=== PATIENT | female | born 1935 | race Caucasian/White ===

== ENCOUNTER 2018-09-25 09:14 | Emergency (ER) | payer MEDICARE, BC ==
[2018-09-25] MEDS ORDERED: MAG HYDROX/AL HYDROX/SIMETH 30 ML, HYOSCYAMINE ELIXIR 10 ML, CIMETIDINE HCL 300 MG, LID... PO STA ×4 (09:47)
--- NOTE | 2018-09-25 10:38 | XR ---
EXAMINATION TYPE: XR chest 1V portable DATE OF EXAM: 09/25/2018 COMPARISON: NONE HISTORY: Pain, difficulty swallowing TECHNIQUE: Single frontal view of the chest is obtained. FINDINGS: There is no focal air space opacity, pleural effusion, or pneumothorax seen. The cardiac silhouette size is within normal limits. The aorta is dense. Patient is rotated. The osseous structu res are intact. IMPRESSION: No acute process.
--- NOTE | 2018-09-25 10:52 | ED ---
General Adult HPI - General Chief complaint: Skin/Abscess/Foreign Body Stated complaint: FB IN THROAT Time Seen by Provider: 09/25/18 09:32 Source: patient, RN notes reviewed, old records reviewed Mode of arrival: ambulatory Limitations: no limitations - History of Present Illness Initial comments: This is a 83-year-old female the ER for evaluation. This patient presents today for evaluation regards to pain in her abdomen. Pain in her chest. Patient feels like she swallowed and was unable is completely soft food only this morning. Symptoms have persisted. She is unable to handle secretions currently keep spitting and coughing. Unable to swallow or drink fluids after having his event. Patient states she was similar event maybe about 20 years ago. No history of endoscopy - Related Data Home Medications Medication Instructions Recorded Confirmed Artificial Tears-Hypromellose 1 drop BOTH EYES QID 09/25/18 09/25/18 [Artificial Tear Drops] Calcium/Magnesium/Zinc 1 tab PO DAILY 09/25/18 09/25/18 [Iglcqud-Autydthgm-Ozuy Tablet] Cholecalciferol [Vitamin D3] 1,000 unit PO DAILY 09/25/18 09/25/18 Diclofenac Sodium/Misoprostol 1 tab PO DAILY 09/25/18 09/25/18 [Arthrotec 75 mg-200 Mcg Tab] Multivitamins, Thera [Multivitamin 1 tab PO DAILY 09/25/18 09/25/18 (formulary)] Simvastatin [Zocor] 40 mg PO HS 09/25/18 09/25/18 Allergies Allergy/AdvReac Type Severity Reaction Status Date / Time Penicillins Allergy Unknown Verified 09/25/18 10:25 Review of Systems ROS Statement: Those systems with pertinent positive or pertinent negative responses have been documented in the HPI. ROS Other: All systems not noted in ROS Statement are negative. Past Medical History Past Medical History: COPD History of Any Multi-Drug Resistant Organisms: None Reported Past Psychological History: No Psychological Hx Reported Smoking Status: Current every day smoker Past Alcohol Use History: None Reported Past Drug Use History: None Reported General Exam Limitations: no limitations Course Vital Signs 09/25/18 09/25/18 09:28 12:41 Temperature 98.2 F Pulse Rate 57 L 64 Respiratory 20 18 Rate Blood Pressure 172/75 179/83 O2 Sat by Pulse 98 99 Oximetry - Reevaluation(s) Reevaluation #1: 09/25/18 14:02 Spoke with GI, they're made aware patient's main emergency room, patient was given glucagon IV and symptoms completely resolved. Patient tolerating oral intake EKG Findings - EKG Comments: EKG Findings:: EKG shows sinus rhythm rate of 63, ND 160, QRS 86, QTc 418 Medical Decision Making - Medical Decision Making 83 female the ER for evaluation, patient feels foreign body in throat. Patient' s resolution after glucagon. Tolerate oral intake. Patient can be discharged home - Lab Data Result diagrams: 09/25/18 13:26 09/25/18 13:26 Lab Results 09/25/18 09/25/18 09/25/18 Range/Units 13:26 13:26 13:26 WBC 6.6 (3.8-10.6) k/uL RBC 4.41 (3.80-5.40) m/uL Hgb 13.8 (11.4-16.0) gm/dL Hct 43.3 (34.0-46.0) % MCV 98.3 (80.0-100.0) fL MCH 31.3 (25.0-35.0) pg MCHC 31.8 (31.0-37.0) g/dL RDW 13.7 (11.5-15.5) % Plt Count 275 (150-450) k/uL Neutrophils % 63 % Lymphocytes % 29 % Monocytes % 6 % Eosinophils % 1 % Basophils % 0 % Neutrophils # 4.2 (1.3-7.7) k/uL Lymphocytes # 1.9 (1.0-4.8) k/uL Monocytes # 0.4 (0-1.0) k/uL Eosinophils # 0.1 (0-0.7) k/uL Basophils # 0.0 (0-0.2) k/uL PT 10.0 (9.0-12.0) sec INR 1.0 (<1.2) APTT 26.0 (22.0-30.0) sec Sodium 141 (137-145) mmol/L Potassium 4.3 (3.5-5.1) mmol/L Chloride 106 (98-107) mmol/L Carbon Dioxide 27 (22-30) mmol/L Anion Gap 8 mmol/L BUN 20 H (7-17) mg/dL Creatinine 0.73 (0.52-1.04) mg/dL Est GFR (CKD-EPI)AfAm 88 (>60 ml/min/1.73 sqM) Est GFR (CKD-EPI)NonAf 77 (>60 ml/min/1.73 sqM) Glucose 107 H (74-99) mg/dL Calcium 9.7 (8.4-10.2) mg/dL Magnesium 2.1 (1.6-2.3) mg/dL Total Bilirubin 0.6 (0.2-1.3) mg/dL AST 29 (14-36) U/L ALT 27 (9-52) U/L Alkaline Phosphatase 75 (38-126) U/L Total Protein 6.5 (6.3-8.2) g/dL Albumin 3.8 (3.5-5.0) g/dL Disposition Clinical Impression: Abdominal pain, Esophageal foreign body Disposition: HOME SELF-CARE Condition: Good Instructions: Esophageal Foreign Body (ED) Is patient prescribed a controlled substance at d/c from ED?: No Referrals: Milind Hines MD [STAFF PHYSICIAN] - 1-2 days
[2018-09-25] MEDS ORDERED: SODIUM CHLORIDE 0.9% 1,000 ML IV STA (12:42)
[2018-09-25] MEDS ORDERED: GLUCAGON 1 MG/ML VIAL IVP STA (12:42)
[2018-09-25 12:43] VITALS: RESP 18
[2018-09-25 13:51] LABS: Basophils % (A) 0 %; Eosinophils # (A) 0.1 k/uL (0-0.7); Eosinophils % (A) 1 %; HCT 43.3 % (34.0-46.0); HGB 13.8 gm/dL (11.4-16.0); Lymphocytes # (A) 1.9 k/uL (1.0-4.8); Lymphocytes % (A) 29 %; MCH 31.3 pg (25.0-35.0); MCHC 31.8 g/dL (31.0-37.0); MCV 98.3 fL (80.0-100.0); Mean Platelet Volume 7.6; Monocytes # (A) 0.4 k/uL (0-1.0); Monocytes % (A) 6 %; Neutrophils # (A) 4.2 k/uL (1.3-7.7); Neutrophils % (A) 63 %; Platelet Count 275 k/uL (150-450); RBC 4.41 m/uL (3.80-5.40); RDW 13.7 % (11.5-15.5); WBC 6.6 k/uL (3.8-10.6)
[2018-09-25 13:58] LABS: Albumin 3.8 g/dL (3.5-5.0); Calcium 9.7 mg/dL (8.4-10.2); Magnesium 2.1 mg/dL (1.6-2.3); Potassium 4.3 mmol/L (3.5-5.1); Total Bilirubin 0.6 mg/dL (0.2-1.3); Total Protein 6.5 g/dL (6.3-8.2)
[2018-09-25 14:03] LABS: Creatine Kinase 33 U/L (30-135)
[2018-09-25 14:16] LABS: Creatine Kinase MB 0.9 ng/mL (0.0-2.4); Troponin I <0.012 ng/mL (0.000-0.034)
[2018-09-25 14:40] VITALS: BP 121/77; PULSE 71; TEMP 98.6
--- NOTE | 2018-09-26 01:57 | CDI ---
Documentation Clarification OP Dear Dr. Chuck Amin Please do addendum to ED report for missing Physical examination. Thank you, Rachelle Merida Dump Attendant If you have any questions, please contact Talent Acquisition Relationship Manager at [phone] [facility]
== END 2018-09-25 14:40 | disposition home or self-care (01) ==
LOC: EC 09:14
DX: T18.128A Food in esophagus causing other injury, initial encounter (principal); R10.9 Unspecified abdominal pain; F17.200 Nicotine dependence, unspecified, uncomplicated; Z79.1 Long term (current) use of non-steroidal anti-inflammatories (NSAID); Z79.899 Other long term (current) drug therapy; Z88.0 Allergy status to penicillin
CPT/HCPCS: 99284; 96374; 96361; 36415; 93005; 80053; 82550; 82553; 83735; 84484; 85025; 85610; 85730; 71045; J1610

== ENCOUNTER 2023-08-13 12:35 | Inpatient (IN) | payer MEDICARE, BC ==
--- NOTE | 2023-08-13 13:34 | ED ---
Dizziness HPI - General Source: patient, RN notes reviewed Mode of arrival: ambulatory Limitations: no limitations <Cortes Fowler - Last Filed: 08/13/23 13:33> <Johnathon Hernández - Last Filed: 08/13/23 18:14> - General Chief Complaint: Dizziness Stated Complaint: Dizziness Time Seen by Provider: 08/13/23 13:33 - History of Present Illness Initial Comments: 88-year-old female presents emergency Department chief complaint of dizziness. Patient states symptoms have been present since last week. She states she feels like things inside her head or moving around. Patient states she's. Sitting in a hard time herself up. Symptoms have been present for several days. No chest pain or shortness breath. (Cortes Fowler) 88-year-old female presented to the ED with a chief complaint of dizziness. Patient states that she is normally very independent however notes over the past week has had symptoms of lightheadedness describing it as feeling like she is going to pass out and also notes that she is sometimes experiencing dizziness describing as feeling unsteady on her feet and needing to grab onto the amor so that she does not fall down. States that due to her symptoms, is unable to do her activities of daily living and notes that she has been lying/sitting more than usual. Denies chest pain or shortness of breath during these episodes. Denies abdominal pain, nausea, vomiting or any other symptoms. Denies urinary symptoms. No other complaints. (Johnathon Hernández) - Related Data Home Medications Medication Instructions Recorded Confirmed Diclofenac Sodium/Misoprostol 1 tab PO DAILY 09/25/18 09/25/18 [Arthrotec 75 mg-200 Mcg Tab] Simvastatin [Zocor] 40 mg PO HS 09/25/18 09/25/18 Levothyroxine Sodium [Synthroid] 25 mcg PO DAILY 08/13/23 08/13/23 atenoloL [Tenormin] 25 mg PO DAILY 08/13/23 08/13/23 traZODone HCL [Desyrel] 25 - 50 mg PO HS PRN 08/13/23 08/13/23 Allergies Allergy/AdvReac Type Severity Reaction Status Date / Time Penicillins Allergy Unknown Verified 08/13/23 12:41 Review of Systems ROS Other: All systems not noted in ROS Statement are negative. <Cortes Fowler - Last Filed: 08/13/23 13:33> ROS Other: All systems not noted in ROS Statement are negative. <Johnathon Hernández - Last Filed: 08/13/23 18:14> ROS Statement: Those systems with pertinent positive or pertinent negative responses have been documented in the HPI. Past Medical History Past Medical History: COPD History of Any Multi-Drug Resistant Organisms: None Reported Past Surgical History: No Surgical Hx Reported Past Psychological History: No Psychological Hx Reported Smoking Status: Former smoker Past Alcohol Use History: None Reported Past Drug Use History: None Reported <Cortes Fowler - Last Filed: 08/13/23 13:33> General Exam Limitations: no limitations <Cortes Fowler - Last Filed: 08/13/23 13:33> General appearance: alert, in no apparent distress Eye exam: Present: normal appearance, PERRL, EOMI ENT exam: Present: mucous membranes moist Neck exam: Present: normal inspection Respiratory exam: Present: normal lung sounds bilaterally Cardiovascular Exam: Present: regular rate, normal rhythm GI/Abdominal exam: Present: soft (No tenderness to palpation. No rebound guarding or rigidity.) Neurological exam: Present: alert, oriented X3, CN II-XII intact Skin exam: Present: warm, dry <Johnathon Hernández - Last Filed: 08/13/23 18:14> - General Exam Comments Initial Comments: Visual Physical Exam Vital signs reviewed General: Well-appearing, nontoxic, no acute distress. Head: Normocephalic, atraumatic Eyes: PERRLA, EOMI ENT: Airway patent Chest: Nonlabored breathing Skin: No visual rash, normal skin tone Neuro: Alert and oriented 3 Musculoskeletal: No gross abnormalities (Cortes Fowler) Course Vital Signs 08/13/23 08/13/23 08/13/23 12:39 16:21 17:43 Temperature 98.6 F Pulse Rate 71 60 Pulse Rate [ 65 Dispatcher Clerk ] Respiratory 18 18 18 Rate Blood Pressure 129/81 146/75 Blood Pressure 147/72 [Left Arm Sitting] Blood Pressure 128/67 [Left Arm Standing] Blood Pressure 159/65 [Left Arm Supine] O2 Sat by Pulse 98 98 98 Oximetry Medical Decision Making <Cortes Fowler - Last Filed: 08/13/23 13:33> - Lab Data Result diagrams: 08/13/23 14:11 08/13/23 14:11 <Johnathon Hernández - Last Filed: 08/13/23 18:14> - Medical Decision Making I performed the quick note portion of this chart signed Cortes Fowler PA-C (Cortes Fowler) Was pt. sent in by a medical professional or institution (, PA, TALENT DEVELOPMENT CONSULTANT, urgent care, hospital, or custodial...) When possible be specific @ -No Did you speak to anyone other than the patient for history (EMS, parent, family, police, friend...)? What history was obtained from this source @ -No Did you review nursing and triage notes (agree or disagree)? Why? @ -I reviewed and agree with nursing and triage notes Were old charts reviewed (outside hosp., previous admission, EMS record, old EKG, old radiological studies, urgent care reports/EKG's, custodial records)? Report findings @ -No old charts were reviewed Differential Diagnosis (chest pain, altered mental status, abdominal pain women, abdominal pain men, vaginal bleeding, weakness, fever, dyspnea, syncope, headache, dizziness, GI bleed, back pain, seizure, CVA, palpatations, mental health, musculoskeletal)? @ -Differential Dizziness: Benign paroxysmal positional Vertigo, Menieres disease, otitis media, acoustic neuroma, vertebrobasilar insufficiency, cerebellar stroke, encephalitis, hypovolemic, arrhythmia, coronary artery syndrome, anemia, this is not meant to be an all-inclusive list EKG interpreted by me (3pts min.). @ -As above X-rays interpreted by me (1pt min.). @ -None done CT interpreted by me (1pt min.). @ -CT interpreted by me showing no acute findings. U/S interpreted by me (1pt. min.). @ -None done What testing was considered but not performed or refused? (CT, X-rays, U/S, labs)? Why? @ -None What meds were considered but not given or refused? Why? @ -None Did you discuss the management of the patient with other professionals ( professionals i.e. , FRANCK, TALENT DEVELOPMENT CONSULTANT, lab, RT, psych nurse, social services assistant, teacher vocational training, teacher, environmental technical officer, case management director)? Give summary @ -Case discussed with Dr. Bacon, who accepts admission. Was smoking cessation discussed for >3mins.? @ -No Was critical care preformed (if so, how long)? @ -No Were there social determinants of health that impacted care today? How? (Homelessness, low income, unemployed, alcoholism, drug addiction, transportation, low edu. Level, literacy, decrease access to med. care, assisted, rehab)? @ -No Was there de-escalation of care discussed even if they declined (Discuss DNR or withdrawal of care, Hospice)? DNR status @ -No What co-morbidities impacted this encounter? (DM, HTN, Smoking, COPD, CAD, Cancer, CVA, ARF, Chemo, Hep., AIDS, mental health diagnosis, sleep apnea, morbid obesity)? @ -None Was patient admitted / discharged? Hospital course, mention meds given and route, prescriptions, significant lab abnormalities, going to OR and other pertinent info. @ -Admission 88-year-old female presenting with symptoms of dizziness and feeling off balance. CT brain shows no acute findings. Laboratory studies largely unremarkable. Urine did show evidence of UTI with greater than 182 white blood cells however patient is not having any symptoms, has no white count, and has no abdominal tenderness on palpation or CVA tenderness to percussion. She did have positive orthostatics with blood pressure supine in the 150s dropping to the 120 standing. Patient will be admitted to observation with consult to neurology and cardiology. Discussed plan of care with patient and family who are in agreement. Undiagnosed new problem with uncertain prognosis? @ -No Drug Therapy requiring intensive monitoring for toxicity (Heparin, Nitro, Insulin, Cardizem)? @ -No Were any procedures done? @ -No Diagnosis/symptom? @ -Dizziness Acute, or Chronic, or Acute on Chronic? @ -Acute Uncomplicated (without systemic symptoms) or Complicated (systemic symptoms)? @ -Complicated, positive orthostatics. Side effects of treatment? @ -No Exacerbation, Progression, or Severe Exacerbation? @ -No Poses a threat to life or bodily function? How? (Chest pain, [place], ME, pneumonia, PE, COPD, DKA, ARF, appy, cholecystitis, CVA, Diverticulitis, Homicidal, Suicidal, threat to staff... and all critical care pts) @ -No (Johnathon Hernández) - Lab Data Lab Results 08/13/23 08/13/23 08/13/23 Range/Units 14:11 14:11 14:11 WBC 8.8 (3.8-10.6) k/uL RBC 4.40 (3.80-5.40) m/uL Hgb 14.3 (11.4-16.0) gm/dL Hct 43.4 (34.0-46.0) % MCV 98.6 (80.0-100.0) fL MCH 32.4 (25.0-35.0) pg MCHC 32.9 (31.0-37.0) g/dL RDW 12.6 (11.5-15.5) % Plt Count 205 (150-450) k/uL MPV 8.2 Neutrophils % 68 % Lymphocytes % 23 % Monocytes % 7 % Eosinophils % 0 % Basophils % 0 % Neutrophils # 6.0 (1.3-7.7) k/uL Lymphocytes # 2.0 (1.0-4.8) k/uL Monocytes # 0.6 (0-1.0) k/uL Eosinophils # 0.0 (0-0.7) k/uL Basophils # 0.0 (0-0.2) k/uL Sodium 135 L (137-145) mmol/L Potassium 4.0 (3.5-5.1) mmol/L Chloride 101 (98-107) mmol/L Carbon Dioxide 26 (22-30) mmol/L Anion Gap 8 mmol/L BUN 21 H (7-17) mg/dL Creatinine 0.63 (0.52-1.04) mg/dL Est GFR (CKD-EPI)AfAm >90 (>60 ml/min/1.73 sqM) Est GFR (CKD-EPI)NonAf 80 (>60 ml/min/1.73 sqM) Glucose 89 (74-99) mg/dL Plasma Lactic Acid Tyron 1.1 (0.7-2.0) mmol/L Calcium 9.8 (8.4-10.2) mg/dL Total Bilirubin 1.0 (0.2-1.3) mg/dL AST 23 (14-36) U/L ALT 16 (4-34) U/L Alkaline Phosphatase 57 (38-126) U/L Troponin I (0.000-0.034) ng/mL Total Protein 6.7 (6.3-8.2) g/dL Albumin 4.3 (3.5-5.0) g/dL Urine Color Urine Appearance (Clear) Urine pH (5.0-8.0) Ur Specific [place] (1.001-1.035) Urine Protein (Negative) Urine Glucose (UA) (Negative) Urine Ketones (Negative) Urine Blood (Negative) Urine Nitrite (Negative) Urine Bilirubin (Negative) Urine Urobilinogen (<2.0) mg/dL Ur Leukocyte Esterase (Negative) Urine RBC (0-5) /hpf Urine WBC (0-5) /hpf Ur Squamous Epith Cells (0-4) /hpf Urine Bacteria (None) /hpf Urine Mucus (None) /hpf 08/13/23 08/13/23 08/13/23 Range/Units 14:11 15:54 17:14 WBC (3.8-10.6) k/uL RBC (3.80-5.40) m/uL Hgb (11.4-16.0) gm/dL Hct (34.0-46.0) % MCV (80.0-100.0) fL MCH (25.0-35.0) pg MCHC (31.0-37.0) g/dL RDW (11.5-15.5) % Plt Count (150-450) k/uL MPV Neutrophils % % Lymphocytes % % Monocytes % % Eosinophils % % Basophils % % Neutrophils # (1.3-7.7) k/uL Lymphocytes # (1.0-4.8) k/uL Monocytes # (0-1.0) k/uL Eosinophils # (0-0.7) k/uL Basophils # (0-0.2) k/uL Sodium (137-145) mmol/L Potassium (3.5-5.1) mmol/L Chloride (98-107) mmol/L Carbon Dioxide (22-30) mmol/L Anion Gap mmol/L BUN (7-17) mg/dL Creatinine (0.52-1.04) mg/dL Est GFR (CKD-EPI)AfAm (>60 ml/min/1.73 sqM) Est GFR (CKD-EPI)NonAf (>60 ml/min/1.73 sqM) Glucose (74-99) mg/dL Plasma Lactic Acid Tyron (0.7-2.0) mmol/L Calcium (8.4-10.2) mg/dL Total Bilirubin (0.2-1.3) mg/dL AST (14-36) U/L ALT (4-34) U/L Alkaline Phosphatase (38-126) U/L Troponin I 0.030 0.029 (0.000-0.034) ng/mL Total Protein (6.3-8.2) g/dL Albumin (3.5-5.0) g/dL Urine Color Yellow Urine Appearance Cloudy H (Clear) Urine pH 5.5 (5.0-8.0) Ur Specific [place] 1.018 (1.001-1.035) Urine Protein Trace H (Negative) Urine Glucose (UA) Negative (Negative) Urine Ketones 2+ H (Negative) Urine Blood Trace H (Negative) Urine Nitrite Negative (Negative) Urine Bilirubin Negative (Negative) Urine Urobilinogen <2.0 (<2.0) mg/dL Ur Leukocyte Esterase Large H (Negative) Urine RBC 4 (0-5) /hpf Urine WBC >182 H (0-5) /hpf Ur Squamous Epith Cells 2 (0-4) /hpf Urine Bacteria Rare H (None) /hpf Urine Mucus Few H (None) /hpf - EKG Data EKG Comments: EKG shows a sinus rhythm at [address] or T-wave changes. ID 160, QRS 92, QT/QTC 406/435. (Johnathon Hernández) Disposition <Cortes Fowler - Last Filed: 08/13/23 13:33> Time of Disposition: 18:14 <Johnathon Hernández - Last Filed: 08/13/23 18:14> Clinical Impression: Dizziness Disposition: ADMITTED IP TO THIS HOSP Referrals: Freddy Concepcion MD [Primary Care Provider] - 1-2 days
--- NOTE | 2023-08-13 14:28 | CT ---
EXAMINATION TYPE: CT brain wo con DATE OF EXAM: 08/13/2023 COMPARISON: None HISTORY: dizziness CT DLP: 1159.[address] of the brain was performed. The ventricles, basal cisterns and sulci overlying the cerebral convexities demonstrate mild enlargem ent. There is no evidence for intracranial hemorrhage or sulcal effacement. There is decreased attenuation about the periventricular white matter and deep white matter of both c erebral hemispheres, compatible with chronic small vessel ischemia. Differential diagnosis does inclu de demyelination. No mass effects are seen.No midline shift. Osseous calvarium is intact. If symptoms persist consider MRI. IMPRESSION: 1. Age related atrophic and chronic small vessel ischemic change without acute intracranial process s een at this time.
[2023-08-13 14:55] LABS: Basophils % (A) 0 %; Eosinophils % (A) 0 %; HCT 43.4 % (34.0-46.0); HGB 14.3 gm/dL (11.4-16.0); Lymphocytes % (A) 23 %; MCH 32.4 pg (25.0-35.0); MCHC 32.9 g/dL (31.0-37.0); MCV 98.6 fL (80.0-100.0); Mean Platelet Volume 8.2; Monocytes # (A) 0.6 k/uL (0-1.0); Monocytes % (A) 7 %; Neutrophils % (A) 68 %; Platelet Count 205 k/uL (150-450); RDW 12.6 % (11.5-15.5); WBC 8.8 k/uL (3.8-10.6)
[2023-08-13 15:05] LABS: ALT 16 U/L (4-34); AST 23 U/L (14-36); African American GFR (CKD) >90 (>60 ml/min/1.73 sqM); Albumin 4.3 g/dL (3.5-5.0); Alkaline Phosphatase 57 U/L (38-126); Anion Gap 8 mmol/L; Blood Urea Nitrogen 21 mg/dL (7-17); Calcium 9.8 mg/dL (8.4-10.2); Carbon Dioxide 26 mmol/L (22-30); Chloride 101 mmol/L (98-107); Glucose 89 mg/dL (74-99); Non-African American GFR(CKD) 80 (>60 ml/min/1.73 sqM); Sodium 135 mmol/L (137-145); Total Protein 6.7 g/dL (6.3-8.2)
[2023-08-13 16:40] LABS: Appearance,Urine Cloudy (Clear); Bacteria,Urine Rare /hpf; Bilirubin,Urine Negative (Negative); Blood,Urine Trace (Negative); Color,Urine Yellow; Glucose,Urine (UA) Negative (Negative); Ketones,Urine 2+ (Negative); Leukocyte Esterase,Urine Large (Negative); Mucus,Urine Few /hpf; Nitrite,Urine Negative (Negative); PH, Urine 5.5 (5.0-8.0); Protein,Urine Trace (Negative); RBC,Urine 4 /hpf (0-5); Specific Gravity,Urine 1.018 (1.001-1.035); Squamous Epithelial Cell,Urine 2 /hpf (0-4); Urobilinogen,Urine <2.0 mg/dL (<2.0); WBC,Urine >182 /hpf (0-5)
[2023-08-13] MEDS ORDERED: KETOROLAC 15 MG/ML 1 ML VIAL IVP STA (18:14)
[2023-08-13] MEDS ORDERED: ONDANSETRON 4 MG/2 ML VIAL IVP PRN (18:15)
[2023-08-13] MEDS ORDERED: MORPHINE SULFATE 4 MG/ML SYRINGE IV PRN (18:15)
[2023-08-13] MEDS ORDERED: KETOROLAC 15 MG/ML 1 ML VIAL IVP PRN (18:15)
[2023-08-13] MEDS ORDERED: NALOXONE 0.4 MG/ML 1 ML VIAL IV PRN (18:15)
[2023-08-13] MEDS: SODIUM CHLORIDE 0.9% 1,000 ML IV SCH (18:41)
[2023-08-13] MEDS ORDERED: LACTULOSE 20 GM/30 ML CUP PO PRN (21:41)
[2023-08-13] MEDS ORDERED: LORazepam 0.5 MG TAB PO PRN (21:41)
[2023-08-13] MEDS ORDERED: ACETAMINOPHEN TAB 325 MG TAB PO PRN (21:41)
[2023-08-13] MEDS ORDERED: CALCIUM CARBONATE 500 MG CHEWABLE PO PRN (21:41)
[2023-08-13] MEDS ORDERED: MELATONIN 3 MG TABLET PO PRN (21:41)
--- NOTE | 2023-08-13 21:51 | P.HPIM ---
History of Present Illness H&P Date: 08/13/23 Chief Complaint: Unsteady gait dizziness Very pleasant 88-year-old patient who follows with Dr. Freddy Concepcion. Chronic stable medical conditions include hypothyroid, hypertension, hyperlipidemia, also arthritis. Patient has regularly been going bowling weekly for years. About 4 days ago she noticed that she was started getting dizzy and unsteady. She felt as she was spinning inside her head. Nausea. She has to hold onto the wall to walk. No change in speech. No change in vision. No focal weakness. Denies any ringing in the ears. No respiratory symptoms. Patient's 1 pack a day smoker. Patient has been store by her family doctor that she has had small strokes last year. Review of systems: GEN.: Tired EYES: None HEENT: Decreased hearing NECK: None RESPIRATORY: None CARDIOVASCULAR: None GASTROINTESTINAL: None GENITOURINARY: None MUSCULOSKELETAL: Arthritis LYMPHATICS: None HEMATOLOGICAL: None PSYCHIATRY: None NEUROLOGICAL: As above Past medical history to include: Hypertension, hypothyroid, arthritis, hyperlipidemia, Social history: Lives alone. Smokes a pack a day for over 60 years. Physical examination: VITAL SIGNS: 98.6, 71, 18, 147/72, 98% room air GENERAL: BMI 17.9, laying in bed awake. EYES: Pupils equal. Conjunctiva normal. HEENT: External appearance of nose and ears normal, oral cavity grossly normal. Decreased hearing NECK: JVD not raised; masses not palpable. HEART: First and second heart sounds are normal; no edema. LUNGS: Respiratory rate normal; clear to auscultation. ABDOMEN: Soft, nontender, liver spleen not palpable, no masses palpable. PSYCH: Alert and oriented x3; mood and affect normal. MUSCULOSKELETAL:No Clubbing/cyanosis;muscles-grossly intact. OA multiple joints NEUROLOGICAL: Cranial nerves grossly intact; no facial asymmetry, power and sensation grossly intact. No nystagmus. No past pointing. LYMPHATICS: No lymph nodes palpable in the axilla and neck INVESTIGATIONS, reviewed in the clinical context: White count 8.8 hemoglobin 14.3 platelets 205 sodium 135 potassium 4 creatinine 0.63 Troponin I 0.030 UA: Nitrite negative. Leukoesterase positive. WBC 182. EKG tracing personally reviewed by me-normal sinus rhythm. Nonspecific ST/T- wave changes. Computed tomography scan brain without contrast: Age-related atrophy and chronic small vessel ischemic changes. Assessment and plan: -Patient presented 4 days of head spinning. Unsteady on the gait. No change in speech or vision. Rule out a cerebellar stroke. MRI of the brain with and without contrast. Carotid Doppler. 2-D echo. Consults neurology. Neuro checks every 4 hours. Aspirin. Lipitor. -Hypothyroid Synthroid 25 g a day -Hyperlipidemia Stop Zocor. Start Lipitor. -Essential hypertension Tenormin -Primary osteoarthritis Tylenol as needed -Abnormal EKG. 2-D echo -Chronic nicotine dependence, cigarette smoker Nicotine patch Patient unsteady in her gait. She has to hold onto the wall to walk. Not safe. Needs neurological full workup. PTOT. Discussed with patient Given the complexity and severity of patient's condition expect the patient to be in the hospital at least for 2 overnights Past Medical History Past Medical History: COPD History of Any Multi-Drug Resistant Organisms: None Reported Past Surgical History: No Surgical Hx Reported Past Psychological History: No Psychological Hx Reported Smoking Status: Former smoker Past Alcohol Use History: None Reported Past Drug Use History: None Reported Medications and Allergies Home Medications Medication Instructions Recorded Confirmed Type Diclofenac Sodium/Misoprostol 1 tab PO BID 09/25/18 08/13/23 History [Arthrotec 75 mg-200 Mcg Tab] Simvastatin [Zocor] 40 mg PO DAILY 09/25/18 08/13/23 History Levothyroxine Sodium [Synthroid] 25 mcg PO DAILY 08/13/23 08/13/23 History atenoloL [Tenormin] 25 mg PO DAILY 08/13/23 08/13/23 History traZODone HCL [Desyrel] 25 - 50 mg PO HS PRN 08/13/23 08/13/23 History Allergies Allergy/AdvReac Type Severity Reaction Status Date / Time Penicillins Allergy Unknown Verified 08/13/23 12:41 Physical Exam Vitals: Vital Signs Temp Pulse Pulse Resp BP BP BP 08/13/23 17:43 65 18 147/72 128/67 08/13/23 16:21 60 18 146/75 08/13/23 12:39 98.6 F 71 18 129/81 BP Pulse Ox 08/13/23 17:43 159/65 98 08/13/23 16:21 98 08/13/23 12:39 98 Intake and Output 08/13/23 08/13/23 08/13/23 06:59 14:59 22:59 Other: Weight 47.174 kg Results CBC & Chem 7: 08/13/23 14:11 08/13/23 14:11 Labs: Abnormal Lab Results - Last 24 Hours (Table) 08/13/23 08/13/23 Range/Units 14:11 15:54 Sodium 135 L (137-145) mmol/L BUN 21 H (7-17) mg/dL Urine Appearance Cloudy H (Clear) Urine Protein Trace H (Negative) Urine Ketones 2+ H (Negative) Urine Blood Trace H (Negative) Ur Leukocyte Esterase Large H (Negative) Urine WBC >182 H (0-5) /hpf Urine Bacteria Rare H (None) /hpf Urine Mucus Few H (None) /hpf
[2023-08-13] MEDS: ASPIRIN 81 MG PO SCH (22:40)
[2023-08-13] MEDS: ATORVASTATIN 40 MG TAB PO SCH (22:41)
[2023-08-13] MEDS: ENOXAPARIN 40 MG/0.4 ML SYRINGE SQ SCH (22:42)
[2023-08-13] MEDS: NICOTINE 21MG/24HR PATCH TRANSDERM SCH (22:42)
--- NOTE | 2023-08-13 22:59 | XR ---
EXAM: XR Chest, 2 Views CLINICAL HISTORY: ITS.REASON XR Reason: Smoker TECHNIQUE: Frontal and lateral views of the chest. COMPARISON: No relevant prior studies available. FINDINGS: Lungs: Unremarkable. No consolidation. Pleural space: Unremarkable. No pneumothorax. Heart: Unremarkable. No cardiomegaly. Mediastinum: Unremarkable. Bones/joints: Unremarkable. IMPRESSION: Normal chest x-rays.
[2023-08-14] MEDS ORDERED: LEVOFLOXACIN 500MG-D5W PMX 500 MG in DEXTROSE/WATER 1 100ML.BAG IVPB ONE (08:00)
--- NOTE | 2023-08-14 09:01 | US ---
EXAMINATION TYPE: US carotid duplex BILAT DATE OF EXAM: 08/14/2023 COMPARISON: CT brain 08/13/2023 CLINICAL INDICATION: Female, 88 years old with history of Dizziness; Dizziness. Patient states she qu it smoking 2 weeks ago. TECHNIQUE: Carotid duplex ultrasound examination. Indirect Doppler criteria was utilized. FINDINGS: EXAM MEASUREMENTS: RIGHT: Peak Systolic Velocity (PSV) cm/sec ----- Right CCA: 86.4 ----- Right ICA: 110.8 ----- Right ECA: 106.0 ICA/CCA ratio: 1.3 RIGHT: End Diastole cm/sec ----- Right CCA: 13.8 ----- Right ICA: 18.9 ----- Right ECA: 7.1 LEFT: Peak Systolic Velocity (PSV) cm/sec ----- Left CCA: 69.4 ----- Left ICA: 194.8 ----- Left ECA: 149.6 ICA/CCA ratio: 2.8 LEFT: End Diastole cm/sec ----- Left CCA: 10.1 ----- Left ICA: 27.6 ----- Left ECA: 0.0 VERTEBRALS (direction of flow): Right Vertebral: Antegrade Left Vertebral: Antegrade Rhythm: Normal PHLEBOTOMIST ASSOCIATE NOTES: Plaque seen within bilateral bulbs and prox left ICA. *Elevated velocities within left bulb, left ICA, and left ECA. IMPRESSION: 1 Atheromatous plaquing greater in the left carotid bulb. 2. Elevated left internal carotid artery velocity compatible with stenosis between 50 and 69%. Criteria for Assigning % of Stenosis / Diameter reduction (Estimation based on the indirect measurements of the internal carotid artery velocities (ICA PSV). 1. Normal (no stenosis)=ICA PSV < 125 cm/s: ratio < 2.0: ICA EDV<40 cm/s. 2. Less than 50% stenosis=ICA PSV < 125 cm/s: ratio < 2.0: ICA EDV<40 cm/s. 3. 50 to 69% stenosis=ICA PSV of 125 to 230 cm/s: ration 2.0 ? 4.0: ICA EDV 40-100 cm/s. 4. Greater than 70% stenosis to near occlusion= ICA PSV > 230 cm/s: ratio > 4.0: ICA EDV > 100 cm/s. 5. Near occlusion= ICA PSV velocities may be low or undetectable: variable ratio and ICA EDV. 6. Total occlusion=unable to detect flow.
--- NOTE | 2023-08-14 10:43 | P.CRDCN ---
History of Present Illness Consult date: 08/14/23 Reason for Consult (text): dizziness History of present illness: History of present illness: This is an 88 year old female with no previous cardiac history, does not follow with a bird raiser. She has a past medical history of hypertension, hyperlipidemia, hypothyroidism, tobacco use and dependence. Patient states that she has had ongoing problems with a lightheadedness feeling like things were moving inside of her head for the past 5-6 months. She states her gait is unsteady and she has to hang onto something to walk. She was very independent prior to this but it is causing her to limit her activity. She denies having any chest pain and no shortness of breath. She states she has lost about 30 pounds or more in the past 5-6 months as well. Patient quit smoking 1 week ago. She denies having any syncopal episodes. No palpitations. Orthostatics done in the emergency center were positive and patient is status post 1 L of IV fluids. EKG sinus rhythm with no acute ST changes Chest x-ray: No acute findings CAT scan of the brain showed no acute findings, chronic small vessel ischemic changes Carotid ultrasound revealed atheromatous plaquing greater in the left carotid bulb. Elevated left internal carotid artery velocity compatible with stenosis between 50 and 69%. CBC normal. Sodium 135, potassium 4.0, BUN 21 creatinine 0.63. Troponin negative 2. Liver function tests are normal. Urinalysis appears to be positi ve for urinary tract infection. Home cardiac medications: Atenolol 25 mg daily, levothyroxine 25 g daily, simvastatin 40 mg at bedtime Review Of Systems: At the time of my evaluation: Constitutional: No fever, no chills. No weakness, fatigue or lethargy. EENT: No headache. No dizziness. Lungs: No shortness of breath, cough, no sputum production. No wheezing. Cardiovascular: No chest pain, no lower extremity edema. No palpitations. No paroxysmal nocturnal dyspnea. No orthopnea. Reports lightheadedness or dizziness. No syncopal episodes. Abdominal: No abdominal pain. No nausea, vomiting. No diarrhea. No constipation. No bloody or tarry stools. Reports weight loss. Genitourinary: Denies dysuria.. No urinary retention. Musculoskeletal: No myalgias. No muscle weakness, no frequent falls. Integumentary: No wounds. No rash. No unusual bruising. Neurologic: No aphasia. No facial droop. No change in mentation. Physical examination: Gen: This is a frail appearing 88-year-old female. Patient is resting been appears to be comfortable and in no acute distress. VS: reviewed HEENT: Head is atraumatic, normocephalic. Pupils equal, round. Sclerae is anicteric. NECK: Supple. No JVD. . LUNGS: Clear to auscultation. No wheezes or rhonchi. No intercostal retra ctions. HEART: Regular rate and rhythm. No murmur. ABDOMEN: Soft No tenderness. EXTREMITIES: No pedal edema. No calf tenderness. NEUROLOGICAL: Patient is awake, alert and oriented x3. Assessment: Lightheadedness, unsteady gait Weight loss of 30 pounds over 5-6 months Carotid artery stenosis left of 50-69% Hypertension Hyperlipidemia Hypothyroidism Plan: Agree with holding atenolol Monitor orthostatic vital signs, continue telemetry Obtain 2-D echocardiogram and Doppler study to assess cardiac structure and function Check TSH/free T4 Further recommendations to follow based upon clinical course Thank you kindly for this consultation. Nurse practitioner note has been reviewed, I agree with documented findings and plan of care. Patient was seen and examined. Past Medical History Past Medical History: COPD History of Any Multi-Drug Resistant Organisms: None Reported Past Surgical History: No Surgical Hx Reported Past Psychological History: No Psychological Hx Reported Smoking Status: Former smoker Past Alcohol Use History: None Reported Past Drug Use History: None Reported Medications and Allergies Home Medications Medication Instructions Recorded Confirmed Type Diclofenac Sodium/Misoprostol 1 tab PO BID 09/25/18 08/13/23 History [Arthrotec 75 mg-200 Mcg Tab] Simvastatin [Zocor] 40 mg PO DAILY 09/25/18 08/13/23 History Levothyroxine Sodium [Synthroid] 25 mcg PO DAILY 08/13/23 08/13/23 History atenoloL [Tenormin] 25 mg PO DAILY 08/13/23 08/13/23 History traZODone HCL [Desyrel] 25 - 50 mg PO HS PRN 08/13/23 08/13/23 History Allergies Allergy/AdvReac Type Severity Reaction Status Date / Time Penicillins Allergy Unknown Verified 08/13/23 12:41 Physical Exam Vitals: Vital Signs Temp Pulse Pulse Resp BP BP BP 08/14/23 06:10 55 L 19 08/14/23 04:36 16 08/14/23 00:00 60 19 117/55 08/13/23 22:38 63 18 151/54 08/13/23 22:00 59 L 21 145/62 08/13/23 21:00 63 19 149/68 08/13/23 20:00 67 20 139/58 08/13/23 19:00 65 23 125/47 08/13/23 18:00 61 11 L 170/67 08/13/23 17:43 65 18 147/72 128/67 08/13/23 17:00 60 26 H 178/82 08/13/23 16:29 26 H 08/13/23 16:21 60 18 146/75 08/13/23 12:39 98.6 F 71 18 129/81 BP Pulse Ox 08/14/23 06:10 97 08/14/23 04:36 08/14/23 00:00 98 08/13/23 22:38 97 08/13/23 22:00 98 08/13/23 21:00 95 08/13/23 20:00 97 08/13/23 19:00 97 08/13/23 18:00 99 08/13/23 17:43 159/65 98 08/13/23 17:00 99 08/13/23 16:29 08/13/23 16:21 98 08/13/23 12:39 98 Results 08/13/23 14:11 08/13/23 14:11 Cardiac Enzymes 08/13/23 08/13/23 08/13/23 Range/Units 14:11 14:11 17:14 AST 23 (14-36) U/L Troponin I 0.030 0.029 (0.000-0.034) ng/mL CBC 08/13/23 Range/Units 14:11 WBC 8.8 (3.8-10.6) k/uL RBC 4.40 (3.80-5.40) m/uL Hgb 14.3 (11.4-16.0) gm/dL Hct 43.4 (34.0-46.0) % Plt Count 205 (150-450) k/uL Comprehensive Metabolic Panel 08/13/23 Range/Units 14:11 Sodium 135 L (137-145) mmol/L Potassium 4.0 (3.5-5.1) mmol/L Chloride 101 (98-107) mmol/L Carbon Dioxide 26 (22-30) mmol/L BUN 21 H (7-17) mg/dL Creatinine 0.63 (0.52-1.04) mg/dL Glucose 89 (74-99) mg/dL Calcium 9.8 (8.4-10.2) mg/dL AST 23 (14-36) U/L ALT 16 (4-34) U/L Alkaline Phosphatase 57 (38-126) U/L Total Protein 6.7 (6.3-8.2) g/dL Albumin 4.3 (3.5-5.0) g/dL Current Medications Generic Name Dose Route Start Last Admin Trade Name Freq PRN Reason Stop Dose Admin Acetaminophen 650 mg 08/13/23 21:41 Acetaminophen Tab 325 Mg Tab PO Q6HR PRN Mild Pain or Fever > 100.5 Aspirin 81 mg 08/13/23 21:45 08/13/23 22:40 Aspirin 81 Mg PO 81 mg DAILY KT Administration Atorvastatin Calcium 40 mg 08/13/23 21:45 08/13/23 22:41 Atorvastatin 40 Mg Tab PO 40 mg HS KT Administration Calcium Carbonate/Glycine 1,000 mg 08/13/23 21:41 Calcium Carbonate 500 Mg Chewable PO Q4HR PRN Dyspepsia Enoxaparin Sodium 40 mg 08/13/23 21:45 08/13/23 22:42 Enoxaparin 40 Mg/0.4 Ml Syringe SQ 40 mg DAILY KT Administration Sodium Chloride 1,000 mls @ 75 mls/hr 08/13/23 18:15 08/13/23 18:41 Saline 0.9% IV 75 mls/hr .[id number] KT Administration Levofloxacin 500 mg/ IV 100 mls @ 100 mls/hr 08/14/23 08:00 Solution IVPB 08/14/23 08:59 ONCE ONE Protocol Levofloxacin/Dextrose 250 mg/ 50 mls @ 50 mls/hr 08/15/23 08:00 IV Solution IVPB Q24H KT Ketorolac Tromethamine 15 mg 08/13/23 18:15 Ketorolac 15 Mg/Ml 1 Ml Vial IVP 08/16/23 18:16 Q6HR PRN Moderate Pain (Scale 4 to 6) Lactulose 20 gm 08/13/23 21:41 Lactulose 20 Gm/30 Ml Cup PO DAILY PRN Constipation Lorazepam 0.5 mg 08/13/23 21:41 Lorazepam 0.5 Mg Tab PO Q6HR PRN Anxiety Melatonin 3 mg 08/13/23 21:41 Melatonin 3 Mg Tablet PO HS PRN Insomnia Nicotine 1 patch 08/13/23 22:00 08/13/23 22:42 Nicotine 21mg/24hr Patch TRANSDERM Not Given DAILY [facility] 08/13/23 14:11 08/13/23 14:11
[2023-08-14] MEDS: ENOXAPARIN 40 MG/0.4 ML SYRINGE SQ SCH (11:25)
[2023-08-14] MEDS: SODIUM CHLORIDE 0.9% 1,000 ML IV SCH ×2 (11:25→20:17)
[2023-08-14] MEDS: ASPIRIN 81 MG PO SCH (11:25)
[2023-08-14] MEDS: NICOTINE 21MG/24HR PATCH TRANSDERM SCH (11:25)
--- NOTE | 2023-08-14 12:41 | P.PN ---
Subjective Very pleasant 88-year-old patient who follows with Dr. Freddy Concepcion. Chronic stable medical conditions include hypothyroid, hypertension, hyperlipidemia, also arthritis. Patient has regularly been going bowling weekly for years. About 4 days ago she noticed that she was started getting dizzy and unsteady. She felt as she was spinning inside her head. Nausea. She has to hold onto the wall to walk. No change in speech. No change in vision. No focal weakness. Denies any ringing in the ears. No respiratory symptoms. Patient's 1 pack a day smoker. Patient has been store by her family doctor that she has had small strokes last year. 08/14/2023 Patient presents because of dizziness and difficulty walking 1 week. She describes the dizziness as nonspecific. She denies vertigo. No presyncope. She states that she didn't want to come to the hospital but her niece and nephew brought her to the hospital. She does not feel dizzy while she is lying down. She denies any other specific symptoms. Orthostatic vitals were checked and they were negative Patient looks somewhat dehydrated and currently she is on normal saline and 75 mL/h. Urinalysis suspicious for infection and with dizziness is fixed recently treated. Patient is ALLERGIC to penicillin and she was started on Levaquin. Urine culture is pending. Carotid duplex showing stenosis about 50-69%. Underwater Photographer already evaluated the patient and the recommended check TSH. Neurology consult. Patient denies ENT problems Active Medications Generic Name Dose Route Start Last Admin Trade Name Freq PRN Reason Stop Dose Admin Acetaminophen 650 mg 08/13/23 21:41 Acetaminophen Tab 325 Mg Tab PO Q6HR PRN Mild Pain or Fever > 100.5 Aspirin 81 mg 08/13/23 21:45 08/14/23 11:25 Aspirin 81 Mg PO 81 mg DAILY KT Administration Atorvastatin Calcium 40 mg 08/13/23 21:45 08/13/23 22:41 Atorvastatin 40 Mg Tab PO 40 mg HS KT Administration Calcium Carbonate/Glycine 1,000 mg 08/13/23 21:41 Calcium Carbonate 500 Mg Chewable PO Q4HR PRN Dyspepsia Enoxaparin Sodium 40 mg 08/13/23 21:45 08/14/23 11:25 Enoxaparin 40 Mg/0.4 Ml Syringe SQ Not Given DAILY KT Sodium Chloride 1,000 mls @ 75 mls/hr 08/13/23 18:15 08/14/23 11:25 Saline 0.9% IV 75 mls/hr .[id number] KT Administration Levofloxacin/Dextrose 250 mg/ 50 mls @ 50 mls/hr 08/15/23 08:00 IV Solution IVPB Q24H [facility] Ketorolac Tromethamine 15 mg 08/13/23 18:15 Ketorolac 15 Mg/Ml 1 Ml Vial IVP 08/16/23 18:16 Q6HR PRN Moderate Pain (Scale 4 to 6) Lactulose 20 gm 08/13/23 21:41 Lactulose 20 Gm/30 Ml Cup PO DAILY PRN Constipation Lorazepam 0.5 mg 08/13/23 21:41 Lorazepam 0.5 Mg Tab PO Q6HR PRN Anxiety Melatonin 3 mg 08/13/23 21:41 Melatonin 3 Mg Tablet PO HS PRN Insomnia Nicotine 1 patch 08/13/23 22:00 08/14/23 11:25 Nicotine 21mg/24hr Patch TRANSDERM Not Given DAILY [facility] Objective - Vital Signs Vital signs: Vital Signs Temp 97.6 F 08/14/23 07:00 Pulse 60 08/14/23 07:00 Resp 19 08/14/23 06:10 BP 148/54 08/14/23 07:00 Pulse Ox 97 08/14/23 07:00 FiO2 Intake & Output 08/13/23 08/14/23 08/14/23 18:59 06:59 18:59 Weight 47.174 kg 47.174 kg - Exam GENERAL: The patient is alert and oriented x3, not in any acute distress. Well developed, well nourished. HEENT: Pupils are round and equally reacting to light. EOMI. No scleral icterus. No conjunctival pallor. Normocephalic, atraumatic. No pharyngeal erythema. No t hyromegaly. CARDIOVASCULAR: S1 and S2 present. No murmurs, rubs, or gallops. PULMONARY: Chest is clear to auscultation, no wheezing , no crackles. ABDOMEN: Soft, nontender, nondistended, normoactive bowel sounds. No palpable organomegaly. MUSCULOSKELETAL: No joint swelling or deformity. EXTREMITIES: No cyanosis, clubbing, or pedal edema. NEUROLOGICAL: Gross neurological examination did not reveal any focal deficits. SKIN: No rashes. no petechiae. - Labs CBC & Chem 7: 08/13/23 14:11 08/13/23 14:11 Labs: Abnormal Lab Results - Last 24 Hours (Table) 08/13/23 08/13/23 Range/Units 14:11 15:54 Sodium 135 L (137-145) mmol/L BUN 21 H (7-17) mg/dL Urine Appearance Cloudy H (Clear) Urine Protein Trace H (Negative) Urine Ketones 2+ H (Negative) Urine Blood Trace H (Negative) Ur Leukocyte Esterase Large H (Negative) Urine WBC >182 H (0-5) /hpf Urine Bacteria Rare H (None) /hpf Urine Mucus Few H (None) /hpf Assessment and Plan Assessment: -Patient presented 4 days of head spinning. Unsteady on the gait. No change in speech or vision. Rule out a cerebellar stroke. MRI of the brain with and without contrast. 2-D echo are pending Consults neurology. Neuro checks every 4 hours. Aspirin. Lipitor. -Possible acute coronary tract infection Start Levaquin Follow-up urine culture -Left internal carotid artery stenosis 50-69% Follow-up outpatient vascular surgery, contact information provided already -Hypothyroid Synthroid 25 g a day -Hyperlipidemia Stop Zocor. Start Lipitor. -Essential hypertension Tenormin -Primary osteoarthritis Tylenol as needed -Abnormal EKG. 2-D echo -Chronic nicotine dependence, cigarette smoker Nicotine patch
[2023-08-14 13:46] VITALS: BMI 17.8
--- NOTE | 2023-08-14 15:41 | CA ---
Transthoracic Echo Report Name: Eva Grider Age: 88 Gender: F : 1935 Exam Date: 08/14/2023 14:53 Exam Location: [place] [facility] Ht (in): 64 Wt (lb): 104 Ordering Physician: Liang Bacon MD Attending/Referring Phys: Process Checker Katie Gray RDCS Procedure CPT: Indications: abnormal ekg Cardiac Hx: Technical Quality: Fair Contrast 1: Total Dose (mL): Contrast 2: Total Dose (mL): MEASUREMENTS (Male / Female) Normal Values 2D ECHO LV Diastolic Diameter PLAX 3.9 cm 4.2 - 5.9 / 3.9 - 5.3 cm LV Systolic Diameter PLAX 2.3 cm IVS Diastolic Thickness 1.1 cm 0.6 - 1.0 / 0.6 - 0.9 cm LVPW Diastolic Thickness 1.1 cm 0.6 - 1.0 / 0.6 - 0.9 cm LV Relative Wall Thickness 0.6 RV Internal Dim ED PLAX 2.5 cm LA Systolic Diameter LX 2.7 cm 3.0 - 4.0 / 2.7 - 3.8 cm LV Diastolic Volume MOD 4C 48.7 cm??? LV Systolic Volume MOD 4C 21.3 cm??? LV Ejection Fraction MOD 4C 56.2 % LV Cardiac Index MOD 4C 1150.5 cm???/min???m??? LV Diastolic Length 4C 5.9 cm LV Systolic Length 4C 5.2 cm LV Diastolic Volume MOD 2C 40.9 cm??? LV Systolic Volume MOD 2C 24.0 cm??? LV Ejection Fraction MOD 2C 41.4 % LV Cardiac Index MOD 2C 712.8 cm???/min???m??? LV Diastolic Length 2C 5.6 cm LV Systolic Length 2C 4.6 cm LA Volume 25.1 cm??? 18 - 58 / 22 - 52 cm??? M-MODE Aortic Root Diameter MM 2.9 cm MV E Point Septal Separation 0.3 cm AV Cusp Separation MM 1.5 cm DOPPLER AV Peak Velocity 95.6 cm/s AV Peak Gradient 3.7 mmHg MV Area PHT 2.5 cm??? Mitral E Point Velocity 100.4 cm/s Mitral A Point Velocity 81.0 cm/s Mitral E to A Ratio 1.2 MV Deceleration Time 303.2 ms MV E' Velocity 5.1 cm/s Mitral E to MV E' Ratio 19.8 TR Peak Velocity 261.3 cm/s TR Peak Gradient 27.3 mmHg Right Ventricular Systolic Press 31.6 mmHg FINDINGS Left Ventricle Left ventricular ejection fraction is estimated at 55-60 %. Left ventricular cavity size normal. Mildly increased septal wall thickness. Mildly increased posterior wall thickness. Right Ventricle Normal right ventricular size. Right ventricular systolic pressure within normal limits. Right Atrium Normal right atrial size. Left Atrium Normal left atrial size. Mitral Valve Structurally normal mitral valve. Mitral annular calcification. Trace mitral regurgitation. Aortic Valve Trileaflet aortic valve. No aortic valve stenosis or regurgitation. Tricuspid Valve Structurally normal tricuspid valve. Mild tricuspid regurgitation. Pulmonic Valve Structurally normal pulmonic valve. Pericardium No pericardial effusion. Aorta Normal size aortic root and proximal ascending aorta. CONCLUSIONS Left ventricular ejection fraction 55-60% Mildly increased left ventricular wall thickness RVSP 31 Trace mitral regurgitation Mild mitral calcification Mild tricuspid regurgitation Previewed by: Dr. Chivo Yabrra DO (Electronically Signed) Final Date: 14 August 2023 15:41
[2023-08-14] MEDS ORDERED: MECLIZINE 25 MG TAB PO PRN (17:30)
--- NOTE | 2023-08-14 18:00 | P.CNNES ---
History of Present Illness Consult date: 08/14/23 Requesting physician: Johnathon Hernández Reason for Consult: Dizziness History of Present Illness: Patient is a 88-year-old female came to the hospital yesterday at 12:35 PM for evaluation of dizziness. Patient states his symptoms started 2 weeks ago, she is not very dizzy, but not very steady on her feet. Her niece and nephew brought her to the hospital. She denies any vertigo. Has to walk slow and has to hang onto things. She was feeling unsteady walking. She has lived alone by herself for 30 years. Initially she blamed her dizziness to her age of 88 years. Patient denies any tinnitus, hearing loss, and any pressure or pain in the ears. Denies any recent upper respiratory infection. Denies any stroke sym ptoms like slurred speech, facial droop, double vision, loss of vision, focal numbness tingling or weakness. Patient states that she has been very active, was still bowling before symptoms started 2 weeks ago. Recently just had trouble walking. Patient states that the dizziness does not occur when she is laying still. It does not bother her when she rolls over in the bed. It mainly bothers when she gets up in the bed. Testing nausea vomiting or diplopia. Vital signs on arrival blood pressure 129/81, pulse rate 71, temperature 98.6. Patient's blood test shows normal CBC, sodium 135 normal electrolytes, renal functions, hepatic panel, troponin, TSH. UA shows large amount of leukocyte esterase and more than [address] head revealed age-related atrophic and chronic small vessel ischemic change without acute intracranial process seen at this time. I personally reviewed CT head, agree with the findings. Visualized paranasal sinuses, and external auditory canals are clear. Patient had orthostatics checked in which her supine blood pressure 159/65, sitting was 147/72 and standing 128/67. Repeat orthostatics him back negative with supine 148/54 with pulse of 60, sitting 136/64 with pulse of 62 and standing 133/68 with pulse of 74. Patient has smoked 1 pack per day for 50 years, quit 2 weeks ago. She denies any alcoholism, denies any diabetes or hypertension. She does have hyperlipidemia. Patient does not take any antiplatelet medication at home. Review of Systems Constitutional: Reports weight loss, Denies chills, Denies fever Eyes: denies blurred vision, denies decreased vision, denies diplopia, denies pain Ears: deny: decreased hearing, ear discharge, earache Ears, nose, mouth and throat: Denies headache, Denies sore throat Cardiovascular: Denies chest pain, Denies shortness of breath Respiratory: Reports excessive sputum, Denies cough Gastrointestinal: Denies abdominal pain, Denies diarrhea, Denies nausea, Denies vomiting Genitourinary: Denies dysuria, Denies hematuria, Denies urgency, Denies urinary frequency Musculoskeletal: Denies low back pain, Denies myalgias, Denies neck pain Integumentary: Denies pruritus, Denies rash Neurological: Reports as per HPI Psychiatric: Denies anxiety, Denies depression Endocrine: Reports fatigue (Now, but has been bowling), Reports weight change Hematologic/Lymphatic: Denies easy bleeding, Denies easy bruising Past Medical History Past Medical History: COPD History of Any Multi-Drug Resistant Organisms: None Reported Past Surgical History: No Surgical Hx Reported Past Psychological History: No Psychological Hx Reported Smoking Status: Former smoker Past Alcohol Use History: None Reported Past Drug Use History: None Reported Medications and Allergies Home Medications Medication Instructions Recorded Confirmed Type Diclofenac Sodium/Misoprostol 1 tab PO BID 09/25/18 08/13/23 History [Arthrotec 75 mg-200 Mcg Tab] Simvastatin [Zocor] 40 mg PO DAILY 09/25/18 08/13/23 History Levothyroxine Sodium [Synthroid] 25 mcg PO DAILY 08/13/23 08/13/23 History atenoloL [Tenormin] 25 mg PO DAILY 08/13/23 08/13/23 History traZODone HCL [Desyrel] 25 - 50 mg PO HS PRN 08/13/23 08/13/23 History Allergies Allergy/AdvReac Type Severity Reaction Status Date / Time Penicillins Allergy Unknown Verified 08/13/23 12:41 Physical Examination - Vital Signs Vital Signs: Vital Signs Temp Pulse Pulse Pulse Pulse Pulse Resp 08/14/23 07:00 97.6 F 62 74 60 08/14/23 06:10 55 L 19 08/14/23 04:36 16 08/14/23 00:00 60 19 08/13/23 22:38 63 18 08/13/23 22:00 59 L 21 08/13/23 21:00 63 19 08/13/23 20:00 67 20 08/13/23 19:00 65 23 08/13/23 18:00 61 11 L 08/13/23 17:43 65 18 08/13/23 17:00 60 26 H 08/13/23 16:29 26 H 08/13/23 16:21 60 18 BP BP BP BP Pulse Ox 08/14/23 07:00 136/64 133/68 148/54 97 08/14/23 06:10 97 08/14/23 04:36 08/14/23 00:00 117/55 98 08/13/23 22:38 151/54 97 08/13/23 22:00 145/62 98 08/13/23 21:00 149/68 95 08/13/23 20:00 139/58 97 08/13/23 19:00 125/47 97 08/13/23 18:00 170/67 99 08/13/23 17:43 147/72 128/67 159/65 98 08/13/23 17:00 178/82 99 08/13/23 16:29 08/13/23 16:21 146/75 98 Intake and Output 08/13/23 08/14/23 08/14/23 22:59 06:59 14:59 Other: Weight 47.174 kg Patient is an elderly female, very pleasant, in no acute distress. Her Patient is alert awake oriented to time place and person. Speech and language functions are normal. Patient can name and repeat very well. No aphasia or dysarthria. Attention, concentration and fund of knowledge is adequate. On cranial nerve examination, pupils are equal, round and reacting to light, visual shields are full on confrontation, with no neglect on double simultaneous stimulation. Extraocular muscles are intact, patient has mild nystagmus with end gaze bilaterally. Face is symmetric, tongue protrudes to the midline. Palatal elevation and sensation normal, hearing is mildly decreased to finger rubbing bilaterally. Her shoulder shrug normal, facial sensation normal. On muscle strength testing, there is no pronator drift and the strength is normal in arms and legs distally and proximally. Deep tendon reflexes are symmetric and hypoactive, and plantars are downgoing bilaterally. Sensory to touch is equal with no neglect on double simultaneous stimulation. Cerebellar function showed no ataxia for [id number] testing. No dysdiadochokinesia. No ataxia for [id number] testing on either side. Tone and bulk of muscles normal. Gait patient walks with normal stride, and arm swing. Denies light base. Patient has difficulty walking tandem. Patient was hanging onto the wall. On general examination, there is no carotid bruit or murmur, S1-S2 audible. Ch est is clear on consultation. Abdomen is soft nontender. No organomegaly, bowel sounds present. Peripheral pulses are present. No edema. Results - Laboratory Findings CBC and BMP: 08/13/23 14:11 08/13/23 14:11 Abnormal Lab Findings: Abnormal Labs 08/13/23 08/13/23 14:11 15:54 Sodium 135 L BUN 21 H Urine Appearance Cloudy H Urine Protein Trace H Urine Ketones 2+ H Urine Blood Trace H Ur Leukocyte Esterase Large H Urine WBC >182 H Urine Bacteria Rare H Urine Mucus Few H Assessment and Plan Assessment: * Dizziness, likely related to peripheral vestibular dysfunction. Patient does have acute UTI, which can be associated with mild labyrinthitis. Patient currently on Levaquin. * Mildly positive orthostasis. * X tobacco use * Hyperlipidemia Plan: * Start meclizine 25 mg 3 times a day when necessary vertigo. Patient is already feeling better. * Patient does have multiple vascular risk factors. Agree with starting aspirin 81 mg daily for stroke prevention. * B12, folate, rule out deficiency * Carotid Doppler revealed atheromatous plaquing greater in the left carotid bu lb. Elevated left ICA velocity compatible with stenosis between 50 and 69%. Antegrade flow in both vertebral arteries. * 2-D echo revealed left ventricular ejection fraction 55-60%, mildly increased left ventricular wall thickness. Trace MR. Mild mitral calcification. Normal left atrial size. * Apparently primary has initiated an MRI of the brain. We will follow. * Patient's orthostasis has improved with hydration. * Re: UTI, patient on Levaquin. Await blood cultures and urine cultures. * Neurology will follow with you. Discussed with patient's niece in detail. Thank you for the consult.
[2023-08-14 19:40] VITALS: RESP 16
[2023-08-14] MEDS: ATORVASTATIN 40 MG TAB PO SCH (20:17)
[2023-08-15 07:50] VITALS: BP 148/57; TEMP 97.6
[2023-08-15] MEDS ORDERED: LEVOFLOXACIN 250MG-D5W PMX 250 MG in DEXTROSE/WATER 1 50ML.BAG IVPB SCH (08:00)
[2023-08-15] MEDS: NICOTINE 21MG/24HR PATCH TRANSDERM SCH (08:14)
[2023-08-15] MEDS: ENOXAPARIN 40 MG/0.4 ML SYRINGE SQ SCH (08:14)
[2023-08-15] MEDS: ASPIRIN 81 MG PO SCH (08:15)
[2023-08-15] MEDS ORDERED: LEVOFLOXACIN 250 MG TAB PO SCH (09:00)
[2023-08-15 09:50] VITALS: PULSE 65
--- NOTE | 2023-08-15 10:20 | P.PN ---
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 She has a past medical history of hypertension, hyperlipidemia, hypothyroidism, tobacco use and dependence. Patient states that she has had ongoing problems with a lightheadedness feeling like things were moving inside of her head for the past 5-6 months. She states her gait is unsteady and she has to hang onto something to walk. She was very independent prior to this but it is causing her to limit her activity. She denies having any chest pain and no shortness of breath. She states she has lost about 30 pounds or more in the past 5-6 months as well. Patient quit smoking 1 week ago. She denies having any syncopal episodes. No palpitations. Orthostatics done i n the emergency center were positive and patient is status post 1 L of IV fluids. EKG sinus rhythm with no acute ST changes Chest x-ray: No acute findings CAT scan of the brain showed no acute findings, chronic small vessel ischemic changes Carotid ultrasound revealed atheromatous plaquing greater in the left carotid bulb. Elevated left internal carotid artery velocity compatible with stenosis b etween 50 and 69%. CBC normal. Sodium 135, potassium 4.0, BUN 21 creatinine 0.63. Troponin negative 2. Liver function tests are normal. Urinalysis appears to be positive for urinary tract infection. Home cardiac medications: Atenolol 25 mg daily, levothyroxine 25 g daily, simvastatin 40 mg at bedtime 08/15 Patient is seen today in follow-up. She has been off atenolol and blood pressures are running 120/44002/64. Heart rates in the 50s and 60s. Echocardiogram reveals EF of 55-60%, RVSP 31, mildly increased left ventricular wall thickness, trace mitral regurgitation, mild mitral calcification, mild tricuspid regurgitation. Carotid ultrasound reveals left-sided stenosis of 50- 69%. No repeat blood work available at this time. Blood culture showing no growth at 24 hours. Patient has been seen by neurology and seems to be doing well with meclizine. She states she has been up to the bathroom couple times and she only has some dizziness when she first sits up. Patient is continued on antibiotics for urinary tract infection. TSH 2.51. Physical examination: Gen: This is a frail appearing 88-year-old female. Patient is resting been appears to be comfortable and in no acute distress. VS: reviewed HEENT: Head is atraumatic, normocephalic. Pupils equal, round. Sclerae is anicteric. NECK: Supple. No JVD. . LUNGS: Clear to auscultation. No wheezes or rhonchi. No intercostal retractions. HEART: Regular rate and rhythm. No murmur. ABDOMEN: Soft No tenderness. EXTREMITIES: No pedal edema. No calf tenderness. NEUROLOGICAL: Patient is awake, alert and oriented x3. Assessment: Lightheadedness, unsteady gait Orthostatic hypotension Weight loss of 30 pounds over 5-6 months Urinary tract infection Carotid artery stenosis left of 50-69% Hypertension Hyperlipidemia Hypothyroidism Plan: Agree with holding atenolol, continue to hold at discharge Patient is cleared for discharge from cardiology and may follow-up in the office with Dr. Ybarra in 1-2 weeks. Nurse practitioner note has been reviewed, I agree with documented findings and plan of care. Patient was seen and examined. Objective - Vital Signs Vital signs: Vital Signs Temp 97.9 F 08/15/23 02:53 Pulse 63 08/15/23 02:53 Resp 16 08/15/23 02:53 BP 120/57 08/15/23 02:53 Pulse Ox 98 08/15/23 02:53 FiO2 Intake & Output 08/14/23 08/15/23 08/15/23 18:59 06:59 18:59 Intake Total 118 Balance 118 Weight 47.174 kg Intake: Oral 118 Other: # Voids 1 1 - Labs CBC & Chem 7: 08/13/23 14:11 08/13/23 14:11 Labs: Microbiology - Last 24 Hours (Table) 08/13/23 18:20 Blood Culture - Preliminary Blood 08/13/23 18:35 Blood Culture - Preliminary Blood
[2023-08-15] MEDS: SODIUM CHLORIDE 0.9% 1,000 ML IV SCH (10:27)
--- NOTE | 2023-08-15 22:13 | P.DS ---
Providers Date of admission: 08/13/23 21:50 Attending physician: Liang Bacon Consults: 08/13/23 18:15 Consult Physician Urgent Consulting Provider: [facility] Consult Reason/Comments: dizziness, postitive orthostatics Do you want consulting provider notified?: Yes Consult Physician Urgent Consulting Provider: Eric Balderrama Consult Reason/Comments: dizziness Do you want consulting provider notified?: Yes Primary care physician: Freddy Concepcion [facility] Hospital Course: Please note patient was not discharged but left AMA Diagnoses: -Non-compliance Patient leaving AMA. Patient has capacity to make medical decision. Patient instructed to see her PCP ALLEN and to come back to emergency room if she changes her mind and she agrees -Patient presented 4 days of head spinning. Unsteady on the gait. No change in speech or vision. Rule out a cerebellar stroke. MRI of the brain with and without contrast. 2-D echo are pending Consults neurology. Neuro checks every 4 hours. Aspirin. Lipitor. -Possible acute coronary tract infection Start Levaquin Follow-up urine culture -Left internal carotid artery stenosis 50-69% Follow-up outpatient vascular surgery, contact information provided already -Hypothyroid Synthroid 25 g a day -Hyperlipidemia Stop Zocor. Start Lipitor. -Essential hypertension Tenormin -Primary osteoarthritis Tylenol as needed -Abnormal EKG. 2-D echo -Chronic nicotine dependence, cigarette smoker Nicotine patch Hospital course: Very pleasant 88-year-old patient who follows with Dr. Freddy Concepcion. Chronic stable medical conditions include hypothyroid, hypertension, hyperlipidemia, also arthritis. Patient has regularly been going [employer] weekly for years. About 4 days ago she noticed that she was started getting dizzy and unsteady. She felt as she was spinning inside her head. Nausea. She has to hold onto the wall to walk. No change in speech. No change in vision. No focal weakness. Denies any ringing in the ears. No respiratory symptoms. Patient's 1 pack a day smoker. Patient has been store by her family doctor that she has had small strokes last year. 08/14/2023 Patient presents because of dizziness and difficulty walking 1 week. She describes the dizziness as nonspecific. She denies vertigo. No presyncope. She states that she didn't want to come to the hospital but her niece and nephew brought her to the hospital. She does not feel dizzy while she is lying down. She denies any other specific symptoms. Orthostatic vitals were checked and they were negative Patient looks somewhat dehydrated and currently she is on normal saline and 75 mL/h. Urinalysis suspicious for infection and with dizziness is fixed recently treated. Patient is ALLERGIC to penicillin and she was started on Levaquin. Urine culture is pending. Carotid duplex showing stenosis about 50-69%. Retail Sales Lead already evaluated the patient and the recommended check TSH. Neurology consult. Patient denies ENT problems 08/15/2023 Last night patient IV went back and patient refused another IV stating that next day she will be leaving anyway (referring for today) This morning before rounding I received a page from the bedside nurse Julia that patient stated that by 10:00 she will be leaving AMA. About 10 to 10:30 patient was to stop nicely hold in her cup of coffee, she looks well groomed, walking the hallway calmly and steadily with no difficulty. Denying any symptoms stating that her dizziness is mild and that she is leaving AMA and that family members are coming to picking her up. Risks alternatives are explained for the patient extensively. Including the risk of, carotid artery stenosis, loss of weight and no tendency and patient would recommend further workup. Patient verbalized understanding but she denies sustaining a hospital. Based upon my evaluation patient has capacity to make medical decision. Medical team cannot hold her against her will. She knows the risks and understands Plan - Discharge Summary New Discharge Prescriptions: No Action Simvastatin [Zocor] 40 mg PO DAILY Diclofenac Sodium/Misoprostol [Arthrotec 75 mg-200 Mcg Tab] 1 tab PO BID atenoloL [Tenormin] 25 mg PO DAILY traZODone HCL [Desyrel] 25 - 50 mg PO HS PRN PRN Reason: Insomnia Levothyroxine Sodium [Synthroid] 25 mcg PO DAILY Discharge Medication List Diclofenac Sodium/Misoprostol [Arthrotec 75 mg-200 Mcg Tab] 1 tab PO BID 09/25/18 [History] Simvastatin [Zocor] 40 mg PO DAILY 09/25/18 [History] Levothyroxine Sodium [Synthroid] 25 mcg PO DAILY 08/13/23 [History] atenoloL [Tenormin] 25 mg PO DAILY 08/13/23 [History] traZODone HCL [Desyrel] 25 - 50 mg PO HS PRN 08/13/23 [History] Follow up Appointment(s)/Referral(s): Freddy Concepcion MD [Primary Care Provider] - 1-2 days Chivo Ybarra DO [STAFF PHYSICIAN] - 1 Week Discharge Disposition: LEFT AGAINST MEDICAL ADVICE
--- NOTE | 2023-08-16 10:23 | CDI ---
Documentation Clarification Form Date: 08/16/2023 10:11:45 AM From: Altagracia Josue Admit Date: 08/13/2023 09:50:00 PM Patient Name: Eva Grider Visit Number: [id number] Discharge Date: 08/15/2023 10:20:00 AM ATTENTION: The Clinical Documentation Specialists (CDI) and [facility] Coding Staff appreciate your assistance in clarifying documentation. Please respond to the clarification below the line at the bottom and electronically sign. The CDI & [facility] Coding staff will review the response and follow-up if needed. Please note: Queries are made part of the Legal Health Record. If you have any questions, please contact the author of this message via ITS. Dr. Huizar E Sheet Conflicting documentation has been found in the medical record. As attending physician, please provide clarification. Per 2 consults 08/14, ED notes and PN 08/15 "Orthostatics done in ER were positive and patient is status post 1L of IV fluids." Per DCS Orthostatic vitals were checked and they were negative. History/Risk Factors: Dizziness, noncompliance, UTI, carotid stenosis Clinical Indicators: Supine blood pressure 159/65, sitting was 147/72 and standing 128/67. Treatment: 1 Liter IV fluids Please clarify which diagnosis is most appropriate: [ ] Positive for orthostatic hypotension [ ] Negative for orthostatic hypotension [ ] Other (please specify) [ ] Unable to determine Positive for orthostatic hypotension MTDD
== END 2023-08-15 10:20 | disposition left against medical advice (07) | DRG 312 ==
LOC: EC 12:35 → 6NMEDSUR 18:21 → OBSVTOIN 21:50 → 6NMEDSUR 08-14 06:40
PROVIDERS: ADMIT Hospitalist; ATTEND Hospitalist
DX: I95.1 Orthostatic hypotension (principal); N39.0 Urinary tract infection, site not specified; Z68.1 Body mass index [BMI] 19.9 or less, adult; I65.22 Occlusion and stenosis of left carotid artery; E03.9 Hypothyroidism, unspecified; Z91.199 Patient's noncompliance with other medical treatment and regimen due to unspecified reason; E78.5 Hyperlipidemia, unspecified; E86.0 Dehydration; F17.210 Nicotine dependence, cigarettes, uncomplicated; F41.9 Anxiety disorder, unspecified; G47.00 Insomnia, unspecified; H83.09 Labyrinthitis, unspecified ear; I10 Essential (primary) hypertension; J44.9 Chronic obstructive pulmonary disease, unspecified; K59.00 Constipation, unspecified; M19.91 Primary osteoarthritis, unspecified site; Z53.29 Procedure and treatment not carried out because of patient's decision for other reasons; Z60.2 Problems related to living alone; Z79.890 Hormone replacement therapy; Z79.899 Other long term (current) drug therapy; Z88.0 Allergy status to penicillin; Z53.21 Procedure and treatment not carried out due to patient leaving prior to being seen by health care provider; Z71.3 Dietary counseling and surveillance; R63.4 Abnormal weight loss; R26.81 Unsteadiness on feet; Z86.73 Personal history of transient ischemic attack (TIA), and cerebral infarction without residual deficits
CPT/HCPCS: 36415; 70450; 71046; 80053; 81001; 82607; 82746; 83605; 84443; 84484; 85025; 87040; 87086; 93005; 93306; 93880; 96361; 96372; 96374; 99285

== ENCOUNTER 2023-09-08 10:26 | Emergency (ER) | payer MEDICARE, BC ==
[2023-09-08 10:45] VITALS: TEMP 98.1
[2023-09-08] MEDS ORDERED: SODIUM CHLORIDE 0.9% 1,000 ML IV STA (10:50)
[2023-09-08] MEDS ORDERED: SCOPOLAMINE 1 MG/72 HR PATCH TRANSDERM STA (10:51)
[2023-09-08] MEDS ORDERED: MECLIZINE 12.5 MG TAB PO STA (10:51)
[2023-09-08] MEDS ORDERED: METOCLOPRAMIDE 5 MG/ML 2 ML VIAL IVP STA (10:51)
--- NOTE | 2023-09-08 10:53 | ED ---
General Adult HPI - General Chief complaint: Weakness Stated complaint: Weakness Time Seen by Provider: 09/08/23 10:39 Source: patient, RN notes reviewed Mode of arrival: ambulatory Limitations: no limitations - History of Present Illness Initial comments: Patient is a pleasant 88-year-old female presenting to the emergency department with weakness and dizziness. Symptoms have been occurring for several weeks now. Patient possibly had a syncopal episode at one point. Patient did strike her head. Patient believes this was prior to previous admission. Patient is having persistent dizziness. Patient has decreased appetite and losing weight. Patient feels off balance and needs to hold onto things to walk. Symptoms did start suddenly. Patient did try Juan maneuvers without improvement of symptoms. No weakness. No confusion. - Related Data Home Medications Medication Instructions Recorded Confirmed Diclofenac Sodium/Misoprostol 1 tab PO BID 09/25/18 08/13/23 [Arthrotec 75 mg-200 Mcg Tab] Simvastatin [Zocor] 40 mg PO DAILY 09/25/18 08/13/23 Levothyroxine Sodium [Synthroid] 25 mcg PO DAILY 08/13/23 08/13/23 atenoloL [Tenormin] 25 mg PO DAILY 08/13/23 08/13/23 traZODone HCL [Desyrel] 25 - 50 mg PO HS PRN 08/13/23 08/13/23 Allergies Allergy/AdvReac Type Severity Reaction Status Date / Time Penicillins Allergy Unknown Verified 09/08/23 10:38 Review of Systems ROS Statement: Those systems with pertinent positive or pertinent negative responses have been documented in the HPI. ROS Other: All systems not noted in ROS Statement are negative. Constitutional: Denies: fever Eyes: Denies: eye pain ENT: Denies: ear pain Respiratory: Denies: cough Cardiovascular: Denies: chest pain Endocrine: Denies: fatigue Gastrointestinal: Denies: abdominal pain Neurological: Reports: as per HPI, vertigo. Denies: headache, confusion Past Medical History Past Medical History: COPD History of Any Multi-Drug Resistant Organisms: None Reported Past Surgical History: No Surgical Hx Reported Past Psychological History: No Psychological Hx Reported Smoking Status: Former smoker Past Alcohol Use History: None Reported Past Drug Use History: None Reported General Exam Limitations: no limitations General appearance: alert, in no apparent distress Head exam: Present: normocephalic Eye exam: Present: normal appearance, PERRL, EOMI ENT exam: Present: normal oropharynx Neck exam: Present: normal inspection. Absent: tenderness Respiratory exam: Present: normal lung sounds bilaterally Cardiovascular Exam: Present: regular rate, normal rhythm GI/Abdominal exam: Present: soft. Absent: tenderness Extremities exam: Present: normal inspection, full ROM Neurological exam: Present: alert, oriented X3, CN II-XII intact. Absent: motor sensory deficit Expanded Neurological exam: Present: protecting the airway Speech: Present: fluid speech Cranial nerves: EOM's Intact: Normal Cerebellar function: Finger to Nose: Normal Motor strength exam: RUE: 5, LUE: 5, RLE: 5, LLE: 5 Eye Response: (4) open spontaneously Motor Response: (6) obeys commands Verbal Response: (5) oriented Psychiatric exam: Present: normal affect, normal mood Skin exam: Present: normal color Course Vital Signs 09/08/23 09/08/23 10:35 11:11 Temperature 98.1 F Pulse Rate 55 L 50 L Respiratory 20 16 Rate Blood Pressure 127/67 150/59 O2 Sat by Pulse 99 100 Oximetry EKG Findings - EKG Results: EKG: interpreted by ERMD, sinus rhythm, normal axis, normal QRS, normal ST/T EKG shows: bradycardia Medical Decision Making - Medical Decision Making Was pt. sent in by a medical professional or institution (FRANCK Blankenship, WORKDAY DIRECTOR, urgent care, hospital, or care home...) When possible be specific @ -No Did you speak to anyone other than the patient for history (EMS, parent, family, police, friend...)? What history was obtained from this source @ -Son is presenthistory as he is a better historian and the patient. Did you review nursing and triage notes (agree or disagree)? Why? @ -I reviewed and agree with nursing and triage notes Were old charts reviewed (outside hosp., previous admission, EMS record, old EKG, old radiological studies, urgent care reports/EKG's, care home records)? Report findings @ -Previous CT reviewed. Differential Diagnosis (chest pain, altered mental status, abdominal pain women, abdominal pain men, vaginal bleeding, weakness, fever, dyspnea, syncope, headache, dizziness, GI bleed, back pain, seizure, CVA, palpatations, mental health, musculoskeletal)? @ -Differential Dizziness: Benign paroxysmal positional Vertigo, Menieres disease, otitis media, acoustic neuroma, vertebrobasilar insufficiency, cerebellar stroke, encephalitis, hypovolemic, arrhythmia, coronary artery syndrome, anemia, this is not meant to be an all-inclusive list EKG interpreted by me (3pts min.). @ -As above X-rays interpreted by me (1pt min.). @ -X-ray shows no acute process CT interpreted by me (1pt min.). @ -CT scan the brain does show bilateral subdural hematoma. Left side posterior may have U component. Minimal shift. U/S interpreted by me (1pt. min.). @ -None done What testing was considered but not performed or refused? (CT, X-rays, U/S, labs)? Why? @ -None What meds were considered but not given or refused? Why? @ -None Did you discuss the management of the patient with other professionals (professionals i.e. , PA, WORKDAY DIRECTOR, lab, RT, psych nurse, social media campaign manager, fountain dispenser, teacher, optics technical officer, cyanide case hardener)? Give summary @ -Case was discussed with Dr. Haynes, will accept transfer at [facility]. Was smoking cessation discussed for >3mins.? @ -No Was critical care preformed (if so, how long)? @ -No Were there social determinants of health that impacted care today? How? (Homelessness, low income, unemployed, alcoholism, drug addiction, transportation, low edu. Level, literacy, decrease access to med. care, prison, rehab)? @ -No Was there de-escalation of care discussed even if they declined (Discuss DNR or withdrawal of care, Hospice)? DNR status @ -No What co-morbidities impacted this encounter? (DM, HTN, Smoking, COPD, CAD, Cancer, CVA, ARF, Chemo, Hep., AIDS, mental health diagnosis, sleep apnea, morbid obesity)? @ -None Was patient admitted / discharged? Hospital course, mention meds given and route, prescriptions, significant lab abnormalities, going to OR and other pertinent info. @ -Patient reevaluated. Patient and family are updated on results and plan. Patient will be transferred secondary to subdural hematoma to facility with neurosurgical services. Undiagnosed new problem with uncertain prognosis? @ -No Drug Therapy requiring intensive monitoring for toxicity (Heparin, Nitro, Insulin, Cardizem)? @ -No Were any procedures done? @ -No Diagnosis/symptom? @ -Bilateral subdural hematoma Acute, or Chronic, or Acute on Chronic? @ -Acute Uncomplicated (without systemic symptoms) or Complicated (systemic symptoms)? @ -default Side effects of treatment? @ -No Exacerbation, Progression, or Severe Exacerbation? @ -No Poses a threat to life or bodily function? How? (Chest pain, USA, OR, pneumonia, PE, COPD, DKA, ARF, appy, cholecystitis, CVA, Diverticulitis, Homicidal, Suicidal, threat to staff... and all critical care pts) @ -No - Lab Data Result diagrams: 09/08/23 11:00 09/08/23 11:00 Lab Results 09/08/23 09/08/23 09/08/23 Range/Units 11:00 11:00 11:00 WBC 5.7 (3.8-10.6) k/uL RBC 4.29 (3.80-5.40) m/uL Hgb 14.3 (11.4-16.0) gm/dL Hct 42.7 (34.0-46.0) % MCV 99.5 (80.0-100.0) fL MCH 33.2 (25.0-35.0) pg MCHC 33.4 (31.0-37.0) g/dL RDW 12.8 (11.5-15.5) % Plt Count 272 (150-450) k/uL MPV 8.1 Neutrophils % 61 % Lymphocytes % 29 % Monocytes % 8 % Eosinophils % 1 % Basophils % 0 % Neutrophils # 3.5 (1.3-7.7) k/uL Lymphocytes # 1.6 (1.0-4.8) k/uL Monocytes # 0.4 (0-1.0) k/uL Eosinophils # 0.1 (0-0.7) k/uL Basophils # 0.0 (0-0.2) k/uL PT 10.7 (10.0-12.5) sec INR 1.0 (<1.2) APTT 25.5 (22.0-30.0) sec Sodium 136 L (137-145) mmol/L Potassium 4.2 (3.5-5.1) mmol/L Chloride 100 (98-107) mmol/L Carbon Dioxide 28 (22-30) mmol/L Anion Gap 8 mmol/L BUN 18 H (7-17) mg/dL Creatinine 0.65 (0.52-1.04) mg/dL Est GFR (CKD-EPI)AfAm >90 (>60 ml/min/1.73 sqM) Est GFR (CKD-EPI)NonAf 80 (>60 ml/min/1.73 sqM) Glucose 98 (74-99) mg/dL Plasma Lactic Acid Tyron (0.7-2.0) mmol/L Calcium 9.3 (8.4-10.2) mg/dL Magnesium 1.9 (1.6-2.3) mg/dL Total Bilirubin 0.7 (0.2-1.3) mg/dL AST 21 (14-36) U/L ALT 13 (4-34) U/L Alkaline Phosphatase 63 (38-126) U/L Troponin I (0.000-0.034) ng/mL Total Protein 6.3 (6.3-8.2) g/dL Albumin 3.8 (3.5-5.0) g/dL 09/08/23 09/08/23 Range/Units 11:00 11:00 WBC (3.8-10.6) k/uL RBC (3.80-5.40) m/uL Hgb (11.4-16.0) gm/dL Hct (34.0-46.0) % MCV (80.0-100.0) fL MCH (25.0-35.0) pg MCHC (31.0-37.0) g/dL RDW (11.5-15.5) % Plt Count (150-450) k/uL MPV Neutrophils % % Lymphocytes % % Monocytes % % Eosinophils % % Basophils % % Neutrophils # (1.3-7.7) k/uL Lymphocytes # (1.0-4.8) k/uL Monocytes # (0-1.0) k/uL Eosinophils # (0-0.7) k/uL Basophils # (0-0.2) k/uL PT (10.0-12.5) sec INR (<1.2) APTT (22.0-30.0) sec Sodium (137-145) mmol/L Potassium (3.5-5.1) mmol/L Chloride (98-107) mmol/L Carbon Dioxide (22-30) mmol/L Anion Gap mmol/L BUN (7-17) mg/dL Creatinine (0.52-1.04) mg/dL Est GFR (CKD-EPI)AfAm (>60 ml/min/1.73 sqM) Est GFR (CKD-EPI)NonAf (>60 ml/min/1.73 sqM) Glucose (74-99) mg/dL Plasma Lactic Acid Tyron 1.2 (0.7-2.0) mmol/L Calcium (8.4-10.2) mg/dL Magnesium (1.6-2.3) mg/dL Total Bilirubin (0.2-1.3) mg/dL AST (14-36) U/L ALT (4-34) U/L Alkaline Phosphatase (38-126) U/L Troponin I <0.012 (0.000-0.034) ng/mL Total Protein (6.3-8.2) g/dL Albumin (3.5-5.0) g/dL Disposition Clinical Impression: Bilateral subdural hematomas Disposition: OTHER INSTITUTION NOT DEFINED Is patient prescribed a controlled substance at d/c from ED?: No Referrals: Freddy Concepcion MD [Primary Care Provider] - 1-2 days Time of Disposition: 12:32 - Out of Hospital Transfer - Req. Specs Out of Hospital Transfer - Requested Specifics: Other Emergency Center
[2023-09-08 11:29] LABS: ALT 13 U/L (4-34); AST 21 U/L (14-36); African American GFR (CKD) >90 (>60 ml/min/1.73 sqM); Albumin 3.8 g/dL (3.5-5.0); Alkaline Phosphatase 63 U/L (38-126); Anion Gap 8 mmol/L; Blood Urea Nitrogen 18 mg/dL (7-17); Calcium 9.3 mg/dL (8.4-10.2); Carbon Dioxide 28 mmol/L (22-30); Chloride 100 mmol/L (98-107); Glucose 98 mg/dL (74-99); Magnesium 1.9 mg/dL (1.6-2.3); Non-African American GFR(CKD) 80 (>60 ml/min/1.73 sqM); Potassium 4.2 mmol/L (3.5-5.1); Sodium 136 mmol/L (137-145); Total Bilirubin 0.7 mg/dL (0.2-1.3); Total Protein 6.3 g/dL (6.3-8.2)
[2023-09-08 11:33] LABS: Basophils % (A) 0 %; Eosinophils # (A) 0.1 k/uL (0-0.7); Eosinophils % (A) 1 %; HCT 42.7 % (34.0-46.0); HGB 14.3 gm/dL (11.4-16.0); Lymphocytes # (A) 1.6 k/uL (1.0-4.8); Lymphocytes % (A) 29 %; MCH 33.2 pg (25.0-35.0); MCHC 33.4 g/dL (31.0-37.0); MCV 99.5 fL (80.0-100.0); Mean Platelet Volume 8.1; Monocytes # (A) 0.4 k/uL (0-1.0); Monocytes % (A) 8 %; Neutrophils # (A) 3.5 k/uL (1.3-7.7); Neutrophils % (A) 61 %; Platelet Count 272 k/uL (150-450); RBC 4.29 m/uL (3.80-5.40); RDW 12.8 % (11.5-15.5); WBC 5.7 k/uL (3.8-10.6)
[2023-09-08 11:34] LABS: Partial Thromboplastin Time 25.5 sec (22.0-30.0); Prothrombin Time 10.7 sec (10.0-12.5)
--- NOTE | 2023-09-08 11:54 | CT ---
EXAMINATION TYPE: CT brain wo con DATE OF EXAM: 09/08/2023 COMPARISON: 08/13/2023 HISTORY: Weakness and falls over last month CT DLP: 1159.[address] of the brain was performed. The ventricles, basal cisterns and sulci overlying the cerebral convexities demonstrate mild enlargem ent. There are bilateral subdural collections seen which are nonacute and have occurred since 08/13/2023. R ight subdural collection measures 1 cm in greatest transverse dimension and extends from the frontal to the posterior parietal region. There is small nonacute subdural seen posteriorly on the left as we ll measuring 8.6 mm. There is small hyperdense focus which may reflect acute component. There is mini mal right to left shift of 4.7 mm. There is decreased attenuation about the periventricular white matter and deep white matter of both c erebral hemispheres, compatible with chronic small vessel ischemia. Differential diagnosis does inclu de demyelination. No mass effects are seen.No midline shift. Osseous calvarium is intact. If symptoms persist consider MRI. IMPRESSION: 1. There are bilateral subdural collections seen which are nonacute and have occurred since 08/13/2023 . Right subdural collection measures 1 cm in greatest transverse dimension and extends from the front al to the posterior parietal region. There is small nonacute subdural seen posteriorly on the left as well measuring 8.6 mm. There is small hyperdense focus which may reflect acute component. There is m inimal right to left shift of 4.7 mm.
--- NOTE | 2023-09-08 11:55 | XR ---
EXAMINATION TYPE: XR chest 2V DATE OF EXAM: 09/08/2023 COMPARISON: 08/13/2023 HISTORY: Shortness of breath TECHNIQUE: Frontal and lateral views of the chest are obtained. FINDINGS: Scattered senescent parenchymal changes noted. Hyperinflation compatible with COPD. No evidence for infiltrate. No evidence for atelectasis. Heart size is stable. Mediastinal structures are stable and grossly unremarkable. No evidence for hilar prominence. Degenerative changes dorsal spine. IMPRESSION: 1. No evidence for acute pulmonary disease.
[2023-09-08 12:49] VITALS: RESP 16
[2023-09-08 13:20] VITALS: PULSE 53
[2023-09-08 14:22] VITALS: BP 130/48
== END 2023-09-08 14:21 | disposition other institution (70) ==
LOC: EC 10:26
DX: S06.5X0A Traumatic subdural hemorrhage without loss of consciousness, initial encounter (principal); R00.1 Bradycardia, unspecified; J44.9 Chronic obstructive pulmonary disease, unspecified; Z87.891 Personal history of nicotine dependence; Z88.0 Allergy status to penicillin; X58.XXXA Exposure to other specified factors, initial encounter
CPT/HCPCS: 36415; 93005; 80053; 83605; 83735; 84484; 85025; 85610; 85730; 71046; 70450; 99285; 96374; 96361 ×3; J2765